=== PATIENT | female | born 1945 | race Caucasian/White ===

== ENCOUNTER → 2018-07-04 10:11 | Outpatient (CLI) | payer MEDICARE, OTHER ==
--- NOTE | 2018-07-07 11:54 | EC ---
PATIENT:SHARLENE STEVENSON DATE OF SERVICE: 07/04/18 SEX: F MEDICAL RECORD: [id number] DATE OF : 45 LOCATION:[facility] AGE OF PATIENT: 73 ADMISSION DATE: 07/04/18 REFERRING PHYSICIAN: INTERPRETING PHYSICIAN: JESSICA SANTOYO MD ECHOCARDIOGRAM REPORT ECHO CHARGES 4 ECHO COMPLETE Date: 07/04/18 CLINICAL DIAGNOSIS: MITRAL REGURG ECHOCARDIOGRAPHIC MEASUREMENTS (adult normal given) AC root (d.<3.7cm) 3.4 cm LV Septum d (<1.2 cm> 1.3 cm Valve Excursion 1.0 cm LV Septum (systole) 1.4 cm Left Atria (s.<4.0cm> cm LVPW d(<1.2cm) 1.4 cm RV (d.<2.3cm) 3.7 cm LVPW (sytole) 1.6 cm LV diastole(<5.6CM) 4.3 cm MV E-F(>70mm/sec) cm LV systole 3.3 cm LVOT Diameter 1.8 cm MV exc.(>10mm) 0.7 cm Est.ejection fraction (50-75%) % DOPPLER: LVIT cm/sec A 74.0 cm/sec E 54.0 cm/sec LA cm/sec RVSP 31 mmHg LVOT 105 cm/sec AOP1/2T m/s Asc. Ao 122 cm/sec RVOT 84 cm/sec RA cm/sec PA 98 cm/sec AV Gradient Peak 6.00 mmHg AV Mean 3.08 mmHg AV Area 2.1 cm MV Gradient Peak 4.86 mmHg MV Mean 1.40 mmHg MV Area cm COMMENTS: Director Of Optimization: Stiven BATISTA Diet Clerk: 1 Dr. Santoyo TAPE# PACS Pericardial Effusion N DATE OF SERVICE: 07/04/2018 FINDINGS: 1. Left ventricular chamber size is within normal limits. Left ventricular systolic function is normal. Overall ejection fraction is estimated at 60%. 2. Left atrium is upper limits of normal at 4.0 cm. Right atrium and right ventricular chamber sizes are mildly dilated. 3. Valvular structures have normal structure and motion. 4. Doppler interrogation reveals mild mitral regurgitation and mild tricuspid regurgitation. No other valvular insufficiency or stenosis. Pulmonary systolic ECHOCARDIOGRAM REPORT [id number] SHARLENE STEVENSON pressure is estimated at 31 mmHg. 5. No evidence of pericardial effusion or left ventricular thrombus. TRANSINT:[id number] Voice Confirmation ID: [id number] DOCUMENT ID: [id number] JESSICA SANTOYO MD at 1154 CC: [id number] DICTATION DATE: 07/04/181728 [employer] OPERATOR: 07/04/18 2208 DEP CLI 07/04/18 [place] [id number] [place] [id number]
== END | disposition home or self-care (01) ==
LOC: D.HCCARDIO 10:00
PROVIDERS: ATTEND Internal Medicine Interventional Cardiology
DX: I34.0 Nonrheumatic mitral (valve) insufficiency (principal)

== ENCOUNTER → 2018-08-24 09:37 | Outpatient (CLI) | payer MEDICARE, OTHER ==
--- NOTE | 2018-08-31 10:39 | ST ---
PATIENT:SHARLENE STEVENSON MEDICAL RECORD: [id number] SEX: F LOCATION:[facility] ORDER #: ADMISSION DATE: 08/24/18 AGE OF PATIENT: 73 REFERRING PHYSICIAN: INTERPRETING PHYSICIAN: JESSICA ELDER MD DATE OF SERVICE: 08/24/2018 PROCEDURE: Nuclear stress test. INDICATIONS: Abnormal ECG, hypertension, shortness of breath. She was exercised on standard Lexiscan protocol with 33 mCi of sestamibi injected at peak stress, 11 mCi used previously for rest images. FINDINGS: Gated SPECT reveals preserved ejection fraction at 71% with good wall motion and thickening and brightening throughout all segments. SPECT imaging Cardiolite was used as myocardial fusion agent. There is homogeneous uptake throughout all segments at rest and stress with no evidence of inducible ischemia or previous infarction. OVERALL IMPRESSION: 1. This is a normal nuclear stress test with no evidence of inducible ischemia or previous infarction. 2. Gated SPECT reveals a preserved ejection fraction at 71%. In this patient with ongoing symptomatology, the current scan does not suggest the presence of hemodynamically significant coronary artery disease. Evaluate noncardiac etiology of chest pain. TRANSINT:[id number] Voice Confirmation ID: [id number] DOCUMENT ID: [id number] JESSICA ELDER MD at 1039 CC: KERRY LARIOS DO [id number] DICTATION DATE: 08/25/18 1202 ULTRASOUND MANAGER: 08/26/18 0607 DEP CLI 08/24/18 [place] [id number] [place] [address]
== END | disposition home or self-care (01) ==
LOC: D.HCCARDIO 09:37
PROVIDERS: ATTEND Internal Medicine Interventional Cardiology
DX: I34.0 Nonrheumatic mitral (valve) insufficiency (principal)

== ENCOUNTER → 2019-09-18 08:53 | Outpatient (CLI) | payer MEDICARE, OTHER | END | disposition home or self-care (01) | LOC: D.HCCECHO 08:53 | PROVIDERS: ATTEND Internal Medicine Cardiovascular Disease | DX: I34.0 Nonrheumatic mitral (valve) insufficiency (principal) ==